=== PATIENT | male | born 1980 | race Caucasian/White ===

== ENCOUNTER 2019-04-19 00:50 | Emergency (ER) | payer OTHER, SELFPAY ==
[2019-04-19 00:59] VITALS: BP 133/84; PULSE 113; RESP 22; TEMP 38.1; O2SAT 100; BMI 25.8
[2019-04-19 01:06] LABS: Bacteria Urine None Seen
[2019-04-19 01:09] LABS: Appearance Urine UA CLEAR; Bilirubin Urine UA NEGATIVE (NEGATIVE); Color Urine UA YELLOW; Glucose Urine UA NEGATIVE (Negative); Ketones Urine UA NEGATIVE (NEGATIVE); Leukocyte Esterase Urine UA TRACE (NEGATIVE); Nitrite Urine UA NEGATIVE (Negative); Occult Blood Urine UA TRACE-LYSED (Negative); Protein Urine UA 2+ (Negative); Urobilinogen Urine UA 0.2 E.U./dL (0.2)
[2019-04-19 01:30] LABS: Culture Indicated Urine Cult Not Indicated; Mucus Urine 1+ (Negative); RBC Urine 1-5/HPF (0-5/HPF); Squamous Epithelial Cell Urine 1-5 /HPF (0-5/HPF); WBC Urine 1-5/HPF (0-5/HPF)
[2019-04-19] MEDS: ACETAMINOPHEN 325 MG TABLET 975 MG PO (01:37)
--- NOTE | 2019-04-19 02:06 | ED_ITS ---
HPI - Fever General Chief Complaint: Fever Stated Complaint: high fever penis is swollen back pain Time Seen by Provider: 04/19/19 01:53 Source: patient Mode of arrival: Ambulatory Limitations: no limitations History of Present Illness HPI Narrative: Patient is a 38-year-old male who presents with fever and penis swelling. He says started to notice that his penis was getting swollen and red yesterday. He developed fever as high as 102 he has been taking ibuprofen and resting. He continues to overall not feel well. He was having some mild back pain but no specific laterality. He is able to urinate without difficulty he denies any painful or frequent urination no blood in his urine. He has no abdominal pain nausea or vomiting. He does have some right-sided groin pain as well. He denies any injury to his penis no gross penile discharge. MD complaint: fever Related Data Previous Rx's Medication Instructions Recorded cephalexin [Keflex] 500 mg PO TID #21 cap 04/19/19 clotrimazole 1 applictn TOP BID 14 Days gram 04/19/19 Allergies Allergy/AdvReac Type Severity Reaction Status Date / Time No Known Drug Allergies Allergy Verified 04/19/19 01:02 Review of Systems Review of Systems ROS Unobtainable: All systems reviewed & are unremarkable except as noted in HPI and below Constitutional Constitutional: Reports body ache(s), Reports fatigue and Reports fever(s) Eyes Eyes: Denies change in vision, Denies eye discharge, Denies irritation and Denies loss of vision Cardiovascular Cardiovascular: Denies chest pain, Denies irregular heart rhythm, Denies lightheadedness, Denies palpitations and Denies orthopnea Gastrointestinal Gastrointestinal: Denies abdominal pain, Denies change in bowel habits, Denies diarrhea, Denies nausea and Denies vomiting Genitourinary Genitourinary: Reports as per HPI, Denies difficulty urinating, Reports genital pain, Denies penile discharge, Denies scrotal swelling, Denies testicular mass, Denies testicular pain, Denies urinary frequency and Denies urinary hesitancy Musculoskeletal Musculoskeletal: Denies back pain, Denies muscle weakness, Denies numbness and Denies tingling Integumentary/Breasts Skin/Breast: Denies pruritus, Denies erythema, Denies rash and Denies wounds Neurologic Neurologic: Denies loss of vision, Denies numbness and Denies tingling Endocrine Endocrine: Reports fatigue and Denies palpitations Patient History Medical History Patient denies medical problems (Acute) Social History Smoking Status: Never smoker alcohol intake frequency: 0-2 drinks per day Alcohol type: beer Substance Use Type: does not use Exam Initial Vital Signs Initial Vital Signs: Vital Signs Temperature 100.5 F H 04/19/19 00:59 Pulse Rate 113 H 04/19/19 00:59 Respiratory Rate 22 04/19/19 00:59 Blood Pressure 133/84 04/19/19 00:59 Pulse Oximetry 100 04/19/19 00:59 GENERAL: Young male and in [no acute] distress. HEENT: Head atraumatic,EOMI, pupils reactive, face symmetric CARDIOVASCULAR: Regular rate and rhythm without murmurs, rubs or gallops. RESPIRATORY: Breath sounds equal bilaterally, no wheezes rales or rhonchi. ABDOMEN: Soft, nontender. Normoactive bowel sounds all 4 quadrants. No guarding or rebound. : Penis is circumcised quite enlarged and edamatous and erythematous blanchable he has some streaking up into his abdominal area but stops just above his pubic hair he also is noted to have some right-sided inguinal lymph nodes. No gross pus. No CVA tenderness EXTREMITIES: Normal range of motion, no clubbing or edema. Neurovascularly intact NEUROLOGICAL: Alert and oriented x4.Normal gait and speech. SKIN: Warm, dry, no laceration, no petechiae, no rashes or lesions. Course Orders Ordered: ED Orders 04/19/19 01:00 Urinalysis and Microscopic Stat Urine Chlamydia Gonorrhea PCR Stat 04/19/19 01:50 Complete Blood Count AUTO DIFF Stat Comprehensive Metabolic Panel Stat Lactate (Lactic Acid) Stat Lipase Stat Partial Thromboplastin Time Stat Procalcitonin Stat Prothrombin Time INR Stat 04/19/19 02:20 Blood Culture Stat Discontinued Medications Acetaminophen (Tylenol) 975 mg PO NOW ONE Stop: 04/19/19 01:25 Last Admin: 04/19/19 01:37 Dose: 975 mg Documented by: HGUBERN Sodium Chloride (Normal Saline 0.9%) 1,000 mls @ 1,000 mls/hr IV CONT KASSANDRA Last Admin: 04/19/19 03:08 Dose: Not Given Documented by: CARROLL Sodium Chloride (Normal Saline 0.9%) 1,000 mls @ 1,000 mls/hr IV BOLUS ONE Stop: 04/19/19 02:53 Last Infusion: 04/19/19 04:32 Dose: 0 mls/hr Documented by: Admin: 04/19/19 03:06 Dose: 1,000 mls/hr Documented by: CARROLL Ceftriaxone Sodium/Dextrose (Rocephin) 1 gm in 50 mls @ 100 mls/hr IV NOW ONE Stop: 04/19/19 02:44 Last Infusion: 04/19/19 03:37 Dose: 0 mls/hr Documented by: Admin: 04/19/19 02:56 Dose: 100 mls/hr Documented by: RENAY Sodium Chloride (Normal Saline 0.9%) 1,000 mls @ 1,000 mls/hr IV BOLUS ONE Stop: 04/19/19 03:14 Last Admin: 04/19/19 03:20 Dose: Not Given Documented by: CARROLL Ceftriaxone Sodium/Dextrose (Rocephin) 1 gm in 50 mls @ 100 mls/hr IV NOW ONE Stop: 04/19/19 03:11 Last Admin: 04/19/19 02:56 Dose: Not Given Documented by: RENAY Ketorolac Tromethamine (Toradol) 30 mg IV NOW ONE Stop: 04/19/19 01:55 Last Admin: 04/19/19 02:40 Dose: 30 mg Documented by: CARROLL Ketorolac Tromethamine (Toradol) 30 mg IV NOW ONE Stop: 04/19/19 02:16 Last Admin: 04/19/19 03:08 Dose: Not Given Documented by: CARROLL Vital Signs Vital signs: Vital Signs - 8 hr 04/19/19 00:59 04/19/19 02:49 04/19/19 03:33 Temperature 100.5 F H Pulse Rate 113 H 107 H 101 H Respiratory Rate 22 13 18 Blood Pressure 133/84 Blood Pressure [Left Arm] 113/74 121/71 Pulse Oximetry 100 98 97 04/19/19 03:46 04/19/19 03:51 Temperature 98.6 F 98.7 F Pulse Rate Respiratory Rate Blood Pressure Blood Pressure [Left Arm] Pulse Oximetry MDM - Fever Lab Data Attestation: I reviewed the patient's lab results. Result diagrams: 04/19/19 01:50 04/19/19 01:50 Labs: Lab Results 04/19/19 04/19/19 04/19/19 Range/Units 01:00 01:00 01:50 WBC 12.6 H (4.5-11.0) X10^3/uL RBC 5.16 (4.5-5.9) X10^6/uL Hgb 16.6 (13.5-17.5) g/dL Hct 47.4 (41-53) % MCV 91.8 (80-100) fL MCH 32.1 (26-34) PG MCHC 35.0 (30-36) % RDW 12.6 (11.6-14.8) % Plt Count 168 (150-400) X10^3/uL Neut % (Auto) 90.1 H (50-75) % Lymph % (Auto) 4.1 L (25-40) % [facility] % (Auto) 5.2 (3-14) % Eos % (Auto) 0.4 L (2-4) % Baso % (Auto) 0.2 (0-2) % Neut # (Auto) 97634 H (8829-1343) /uL Lymph # (Auto) 500 L (2087-7184) /uL [facility] # (Auto) 700 (0-900) /uL Eos # (Auto) 100 (0-450) /uL Baso # (Auto) 0 (0-100) /uL PT (10.1-12.7) SECONDS INR (0.9-1.3) APTT (26.4-36.2) SECONDS Sodium (137-145) mmol/L Potassium (3.4-5.1) mmol/L Chloride (98-107) mmol/L Carbon Dioxide (22-32) mmol/L BUN (9-20) mg/dL Creatinine (0.66-1.25) mg/dL Estimated GFR (>60) mL/min BUN/Creatinine Ratio (6-22) Glucose (70-100) mg/dL Lactate (0.7-2.1) mmol/L Calcium (8.4-10.2) mg/dL Total Bilirubin (0.2-1.3) mg/dL AST (17-59) IU/L ALT (<50) IU/L Alkaline Phosphatase (38-126) U/L Total Protein (6.3-8.2) g/dL Albumin (3.5-5.0) g/dL Globulin (1.7-4.1) g/dL Albumin/Globulin Ratio (1.0-2.8) Lipase (23-300) U/L Procalcitonin (<0.5) ng/mL Urine Color Yellow Urine Appearance Clear Urine pH 7.0 (4.5-8.0) Ur Specific [place] 1.010 (1.000-1.035) Urine Protein 2+ H (Negative) Urine Glucose (UA) Negative (Negative) g/dL Urine Ketones Negative (NEGATIVE) Urine Occult Blood Trace-lysed (Negative) Urine Nitrate Negative (Negative) Urine Bilirubin Negative (NEGATIVE) Urine Urobilinogen 0.2 (0.2) E.U./dL Ur Leukocyte Esterase Trace H (NEGATIVE) Urine RBC 1-5/hpf (0-5/HPF) Urine WBC 1-5/hpf (0-5/HPF) Ur Squamous Epith Cells 1-5 /hpf (0-5/HPF) Urine Bacteria None seen (None) Urine Mucus 1+ H (Negative) Ur Culture Indicated? Cult not indicated Ur Chlamydia DNA (PCR) Not detected N gonorrhoeae DNA (PCR) Not detected 04/19/19 04/19/19 04/19/19 Range/Units 01:50 01:50 01:50 WBC (4.5-11.0) X10^3/uL RBC (4.5-5.9) X10^6/uL Hgb (13.5-17.5) g/dL Hct (41-53) % MCV (80-100) fL MCH (26-34) PG MCHC (30-36) % RDW (11.6-14.8) % Plt Count (150-400) X10^3/uL Neut % (Auto) (50-75) % Lymph % (Auto) (25-40) % [facility] % (Auto) (3-14) % Eos % (Auto) (2-4) % Baso % (Auto) (0-2) % Neut # (Auto) (7542-5823) /uL Lymph # (Auto) (8367-8328) /uL [facility] # (Auto) (0-900) /uL Eos # (Auto) (0-450) /uL Baso # (Auto) (0-100) /uL PT 12.7 (10.1-12.7) SECONDS INR 1.1 (0.9-1.3) APTT 28 (26.4-36.2) SECONDS Sodium 137 (137-145) mmol/L Potassium 3.7 (3.4-5.1) mmol/L Chloride 101 (98-107) mmol/L Carbon Dioxide 23 (22-32) mmol/L BUN 14 (9-20) mg/dL Creatinine 0.90 (0.66-1.25) mg/dL Estimated GFR > 60.0 (>60) mL/min BUN/Creatinine Ratio 15.6 (6-22) Glucose 158 H (70-100) mg/dL Lactate (0.7-2.1) mmol/L Calcium 9.5 (8.4-10.2) mg/dL Total Bilirubin 2.0 H (0.2-1.3) mg/dL AST 27 (17-59) IU/L ALT 35 (<50) IU/L Alkaline Phosphatase 58 (38-126) U/L Total Protein 8.2 (6.3-8.2) g/dL Albumin 4.9 (3.5-5.0) g/dL Globulin 3.3 (1.7-4.1) g/dL Albumin/Globulin Ratio 1.5 (1.0-2.8) Lipase 66 (23-300) U/L Procalcitonin 0.16 (<0.5) ng/mL Urine Color Urine Appearance Urine pH (4.5-8.0) Ur Specific [place] (1.000-1.035) Urine Protein (Negative) Urine Glucose (UA) (Negative) g/dL Urine Ketones (NEGATIVE) Urine Occult Blood (Negative) Urine Nitrate (Negative) Urine Bilirubin (NEGATIVE) Urine Urobilinogen (0.2) E.U./dL Ur Leukocyte Esterase (NEGATIVE) Urine RBC (0-5/HPF) Urine WBC (0-5/HPF) Ur Squamous Epith Cells (0-5/HPF) Urine Bacteria (None) Urine Mucus (Negative) Ur Culture Indicated? Ur Chlamydia DNA (PCR) N gonorrhoeae DNA (PCR) 04/19/19 Range/Units 01:50 WBC (4.5-11.0) X10^3/uL RBC (4.5-5.9) X10^6/uL Hgb (13.5-17.5) g/dL Hct (41-53) % MCV (80-100) fL MCH (26-34) PG MCHC (30-36) % RDW (11.6-14.8) % Plt Count (150-400) X10^3/uL Neut % (Auto) (50-75) % Lymph % (Auto) (25-40) % [facility] % (Auto) (3-14) % Eos % (Auto) (2-4) % Baso % (Auto) (0-2) % Neut # (Auto) (4714-5188) /uL Lymph # (Auto) (4691-9074) /uL [facility] [place] # (Auto) (0-900) /uL Eos # (Auto) (0-450) /uL Baso # (Auto) (0-100) /uL PT (10.1-12.7) SECONDS INR (0.9-1.3) APTT (26.4-36.2) SECONDS Sodium (137-145) mmol/L Potassium (3.4-5.1) mmol/L Chloride (98-107) mmol/L Carbon Dioxide (22-32) mmol/L BUN (9-20) mg/dL Creatinine (0.66-1.25) mg/dL Estimated GFR (>60) mL/min BUN/Creatinine Ratio (6-22) Glucose (70-100) mg/dL Lactate 1.5 (0.7-2.1) mmol/L Calcium (8.4-10.2) mg/dL Total Bilirubin (0.2-1.3) mg/dL AST (17-59) IU/L ALT (<50) IU/L Alkaline Phosphatase (38-126) U/L Total Protein (6.3-8.2) g/dL Albumin (3.5-5.0) g/dL Globulin (1.7-4.1) g/dL Albumin/Globulin Ratio (1.0-2.8) Lipase (23-300) U/L Procalcitonin (<0.5) ng/mL Urine Color Urine Appearance Urine pH (4.5-8.0) Ur Specific [place] (1.000-1.035) Urine Protein (Negative) Urine Glucose (UA) (Negative) g/dL Urine Ketones (NEGATIVE) Urine Occult Blood (Negative) Urine Nitrate (Negative) Urine Bilirubin (NEGATIVE) Urine Urobilinogen (0.2) E.U./dL Ur Leukocyte Esterase (NEGATIVE) Urine RBC (0-5/HPF) Urine WBC (0-5/HPF) Ur Squamous Epith Cells (0-5/HPF) Urine Bacteria (None) Urine Mucus (Negative) Ur Culture Indicated? Ur Chlamydia DNA (PCR) N gonorrhoeae DNA (PCR) MDM Narrative Medical decision making narrative: Patient is a febrile with likely cellulitis or balanitis. He is treated with Rocephin for strep I will place him on Keflex and also give him an antifungal cream. He is healthy with no comorbidities. His glucose is mildly elevated 158 but I do not think to have new onset diabetes. This is more likely stress. Patient is actually feeling better after IV fluids and antibiotics. I have discussed with them that we actually do not have Urology available at this hospital this time I do not believe him to need a urology consultation however if things worsen that may be indicated. I discussed all findings with the patient and , Education has been performed regarding treatment plan, diagnosis, warning signs and symptoms and all concerns have been addressed. Verbally agree with and understood all of the above. Discharge Plan Departure Patient Disposition: Home Clinical Impression: Balanoposthitis Discharge Date/Time: 04/19/19 04:01 Instructions: DI for Balanitis Activity Restrictions/Additional Instructions: *You have been diagnosed with Balanoposthitis *What to do: Wash well with soap and hygiene. At this time monitor closely. Fever control, increase *Continue to take medications as directed Keflex 500 mg 3 times a day for 1 week Clotrimazole apply twice a day for 1-2 weeks *Follow up with your primary care provider in 2-3 days, if no improvement may require urology consultation *Return to ER if you should have increased redness, increased fever, inability to urinate or any new, worsening or concerning symptoms Prescriptions: New clotrimazole 1 % cream 1 applictn TOP BID 14 Days RF: 0 cephalexin [Keflex] 500 mg capsule 500 mg PO TID Qty: 21 RF: 0 Referrals: [facility] [Outside]
[2019-04-19 02:13] LABS: Alanine Aminotransferase 35 IU/L (<50); Albumin 4.9 g/dL (3.5-5.0); Albumin Globulin Ratio 1.5 (1.0-2.8); Alkaline Phosphatase 58 U/L (38-126); Aspartate Aminotransferase 27 IU/L (17-59); BUN Creatinine Ratio 15.6 (6-22); Blood Urea Nitrogen 14 mg/dL (9-20); Calcium 9.5 mg/dL (8.4-10.2); Carbon Dioxide 23 mmol/L (22-32); Chloride 101 mmol/L (98-107); Estimated Glomerular Filt Rate > 60.0 mL/min (>60); Globulin 3.3 g/dL (1.7-4.1); Glucose 158 mg/dL (70-100); HEMOLYSIS 22 (0-50); Lipase 66 U/L (23-300); Potassium 3.7 mmol/L (3.4-5.1); Sodium 137 mmol/L (137-145); Total Protein 8.2 g/dL (6.3-8.2)
[2019-04-19 02:14] LABS: Lactate (Lactic Acid) 1.5 mmol/L (0.7-2.1)
[2019-04-19 02:21] LABS: Add Manual Diff / Slide Review NO; Basophils Absolute Auto 0 /uL (0-100); Basophils Percent Auto 0.2 % (0-2); Eosinophils Absolute Auto 100 /uL (0-450); Eosinophils Percent Auto 0.4 % (2-4); Hematocrit 47.4 % (41-53); Hemoglobin 16.6 g/dL (13.5-17.5); Lymphocytes Absolute Auto 500 /uL (1100-4500); Lymphocytes Percent Auto 4.1 % (25-40); Mean Corpuscular Hemoglobin 32.1 PG (26-34); Mean Corpuscular Volume 91.8 fL (80-100); Monocytes Absolute Auto 700 /uL (0-900); Monocytes Percent Auto 5.2 % (3-14); Neutrophils Absolute Auto 11300 /uL (1500-7000); Neutrophils Percent Auto 90.1 % (50-75); Platelet Count 168 X10^3/uL (150-400); Red Blood Cell Count 5.16 X10^6/uL (4.5-5.9); Red Cell Distribution Width 12.6 % (11.6-14.8); White Blood Cell Count 12.6 X10^3/uL (4.5-11.0)
[2019-04-19 02:36] LABS: INR 1.1 (0.9-1.3); Prothrombin Time 12.7 SECONDS (10.1-12.7)
[2019-04-19 02:38] LABS: PTT Partial Thromboplastin Tim 28 SECONDS (26.4-36.2)
[2019-04-19] MEDS: KETOROLAC 60 MG/2 ML VIAL 30 MG IV (02:40)
[2019-04-19 02:46] LABS: Procalcitonin 0.16 ng/mL (<0.5)
[2019-04-19 02:49] VITALS: BP 113/74; PULSE 107; RESP 13; O2SAT 98
[2019-04-19] MEDS: CEFTRIAXONE 1 GM/50 ML FROZ.PIGGY IV (02:56)
[2019-04-19] MEDS: SODIUM CHLORIDE 0.9% 1,000 ML 1000 ML IV (03:06)
[2019-04-19 03:33] VITALS: BP 121/71; PULSE 101; RESP 18; O2SAT 97
--- NOTE | 2019-04-19 03:33 | PC.NURSE ---
Pt states increased swelling in penis, reports started 2 days ago but getting worse. Denies any pain with urination.
[2019-04-19 03:46] VITALS: TEMP 37
[2019-04-19 03:51] VITALS: TEMP 37.1
[2019-04-19 04:30] LABS: Urine N gonorrhoeae NOT DETECTED
[2019-04-19 04:38] LABS: Urine Chlamydia NOT DETECTED
== END 2019-04-19 04:01 | disposition home or self-care (01) ==
PROVIDERS: Emergency Provider Emergency Medicine
DX: N47.6 Balanoposthitis (principal); R50.9 Fever, unspecified; R79.89 Other specified abnormal findings of blood chemistry
CPT/HCPCS: 36415; 80053; 81001; 83605; 83690; 84145; 85025; 85610; 85730; 87040; 87491; 87591; 96361; 96365; 96375; 99283; 99284; J1885